=== PATIENT | female | born 1970 | race Asian ===

== ENCOUNTER 2018-03-23 22:52 | Emergency (ER) | payer BC, MEDICAID ==
[~2018-03-23] VITALS: Ht 160 cm; Wt 77.0 kg
[~2018-03-23 22:52] MED LIST: ESOM40CA PO; NO HOME MEDS
[2018-03-23 22:54] VITALS: BP 131/93
[2018-03-23] MEDS ORDERED: acetaminophen 325mg tablet PO ONE (23:05)
[2018-03-23] MEDS ORDERED: IBUP-1984 PO (23:24)
[2018-03-23] MEDS ORDERED: LIDO20SO16 PO (23:24)
== END 2018-03-23 23:31 | disposition home or self-care (01) ==
LOC: ER 22:53
DX: J06.9 Acute upper respiratory infection, unspecified (principal); J02.9 Acute pharyngitis, unspecified; Z79.899 Other long term (current) drug therapy
CPT/HCPCS: 87081; 87880; 99283

== ENCOUNTER → 2023-09-22 | Outpatient (CLI) | payer MEDICAID ==
[~2023-09-22] MED LIST changes: +LIDO20SO16 PO
== END | disposition home or self-care (01) ==
LOC: RAD 09:22
PROVIDERS: ATTEND Physician Assistant
DX: M25.541 Pain in joints of right hand (principal); M25.542 Pain in joints of left hand
CPT/HCPCS: 73130